=== PATIENT | female | born 1990 | race Caucasian/White ===

== ENCOUNTER → 2020-08-28 | Day surgery (SDC) | payer OTHER ==
[~2020-08-28] MED LIST: DICLOFENAC SODI75 MG PO
[2020-08-28 10:10] LABS: HCG (URINE) SCREEN NEGATIVE (NEGATIVE)
== END | disposition home or self-care (01) ==
LOC: FAS 09:50
PROVIDERS: Anesthesiology
DX: S73.102A Unspecified sprain of left hip, initial encounter (principal); F17.210 Nicotine dependence, cigarettes, uncomplicated; Z20.822 Contact with and (suspected) exposure to COVID-19; X58.XXXA Exposure to other specified factors, initial encounter
CPT/HCPCS: 76000; 84703; J1040; J1100; J1885; J2001; J2250; J2405; J2704; J7120; Q9967

== ENCOUNTER 2020-09-14 17:04 | Emergency (ER) | payer OTHER ==
[2020-09-14] MEDS ORDERED: DICLOFENAC SODI75 MG PO (18:49)
== END 2020-09-14 18:54 | disposition home or self-care (01) ==
LOC: FER 17:04
DX: S52.501A Unspecified fracture of the lower end of right radius, initial encounter for closed fracture (principal); F17.210 Nicotine dependence, cigarettes, uncomplicated; W22.01XA Walked into wall, initial encounter; Y92.009 Unspecified place in unspecified non-institutional (private) residence as the place of occurrence of the external cause
CPT/HCPCS: 73110

== ENCOUNTER 2021-12-07 13:35 | Emergency (ER) | payer OTHER ==
[2021-12-07 14:50] LABS: BILIRUBIN NEGATIVE (NEGATIVE); BLOOD NEGATIVE Ery/uL (NEGATIVE); CLARITY CLEAR (CLEAR); COLOR YELLOW (YELLOW); GLUCOSE (U) NORMAL (NORMAL); LEUKOCYTES NEGATIVE Leu/uL (NEGATIVE); NITRITE NEGATIVE (NEGATIVE); PROTEIN 1+ mg/dL (NEGATIVE); SPECIFIC GRAVITY >=1.030 (1.001-1.030); UROBILINOGEN 0.2 mg/dL (0.2-1.0)
[2021-12-07 15:13] LABS: BACTERIA TRACE; MUCOUS MODERATE; SQUAMOUS EPITHELIAL CELLS 20-50
[2021-12-07 15:13] LABS: BASOPHIL 0.3 % (0-2); EOSINOPHIL 0 % (0-5); HCT 43.7 % (37.0-47.0); HGB 15.1 g/dl (12.5-16.0); LYMPHOCYTE 19.4 % (15-48); MCH 32.1 pg (25.0-31.0); MCHC 34.6 g/dL (32.0-36.0); MONOCYTE 17.3 % (0-12); MPV 10.7 fL (6.0-9.5); NRBC 0; PLT 143 K/uL (150-400); RDW 12.2 % (11.5-14.0); WBC 3.5 K/uL (4.0-10.5)
[2021-12-07 15:28] LABS: ALBUMIN 4.1 g/dL (3.4-5.0); BILIRUBIN - TOTAL 0.3 mg/dL (0.2-1.0); BUN/CREAT RATIO (CALC) 12.7 RATIO; CREATININE 0.71 mg/dL (0.51-0.95); GLOBULIN (CALCULATION) 2.6 g/dL; POTASSIUM 3.9 mmol/L (3.5-5.1); TOTAL PROTEIN 6.7 g/dL (6.4-8.2)
[2021-12-07 15:54] LABS: INFLUENZA A NAA NEGATIVE (NEGATIVE)
[2021-12-07 15:57] LABS: CORONAVIRUS 2019 SARS-COV-2 POSITIVE (NEGATIVE)
== END 2021-12-07 16:32 | disposition home or self-care (01) ==
LOC: FER 13:35
PROVIDERS: Physician Assistant
DX: U07.1 COVID-19 (principal); M25.552 Pain in left hip; F17.210 Nicotine dependence, cigarettes, uncomplicated; Z28.310 Unvaccinated for COVID-19; Z91.048 Other nonmedicinal substance allergy status
CPT/HCPCS: 36415; 72192; 80053; 81001; 85025; J7030; U0002